=== PATIENT | female | born 1970 ===

== ENCOUNTER 2021-08-25 22:27 | Emergency (ER) | payer OTHER ==
[2021-08-25] MEDS ORDERED: Ondansetron 4 MG Tab.DIS PO ONE (22:28)
[2021-08-25] MEDS ORDERED: Prochlorperazine 10 MG/2 ML SDV IVPUSH ONE (23:01)
[2021-08-25] MEDS ORDERED: diphenhydrAMINE 50 MG/ML SDV IVPUSH ONE (23:01)
[2021-08-25] MEDS ORDERED: Sodium Chloride 0.9% 10 ML Syringe FLUSH PRN (23:01)
[2021-08-25] MEDS ORDERED: Sodium Chloride 0.9% 1,000 ML IV ONE (23:02)
[2021-08-26 02:49] VITALS: BP 110/74; PULSE 85
== END 2021-08-26 00:25 | disposition home or self-care (01) ==
LOC: FB.ED 22:27
DX: R51.9 Headache, unspecified (principal)
CPT/HCPCS: 87804; 96374; 99281; 99284; J0780; J7030; Q0162